=== PATIENT | male | born 1960 | race Two or more races ===

== ENCOUNTER 2020-01-11 16:52 | Inpatient (IN) | payer MEDICARE ==
[~2020-01-11] VITALS: Ht 167.6 cm; Wt 49.0 kg
[2020-01-11 16:00] VITALS: BP 127/84
[2020-01-11] MEDS ORDERED: OLAN2.5T3 PO (17:11)
[2020-01-11] MEDS ORDERED: DIVA125T2 PO (17:11)
--- NOTE | 2020-01-11 17:22 | NUR ---
PATIENT WAS SEEN BY MD. HE IS AWAKE AND ALERT. HAND OFF REPORT GIVEN TO ILAN IN MHU
[2020-01-11] MEDS ORDERED: MAGNESIUM HYDROXIDE 30 ML LIQUID UDC PO PRN (17:45)
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
[2020-01-11 20:00] VITALS: BP 112/61
[2020-01-11] MEDS: TEMAZEPAM 7.5 MG CAPSULE PO PRN (22:57)
[2020-01-12 07:30] VITALS: BP 126/67
[2020-01-12 07:38] LABS: BASOPHILS # (AUTO) 0.1 K/uL (0.0-8.0); BASOPHILS % (AUTO) 1.4 % (0.0-2.0); EOSINOPHILS # (AUTO) 0.7 K/uL (0.0-0.7); EOSINOPHILS % (AUTO) 10.1 % (0.0-7.0); HEMATOCRIT 27.4 % (36.7-47.1); HEMOGLOBIN 8.8 g/dL (12.5-16.3); LYMPHOCYTES # (AUTO) 1.4 K/uL (20.0-40.0); LYMPHOCYTES % (AUTO) 20.5 % (20.5-51.5); MEAN CORPUSCULAR HEMOGLOBIN 27.4 uug (23.8-33.4); MEAN CORPUSCULAR HGB CONC 32 g/dL (32.5-36.3); MEAN CORPUSCULAR VOLUME 84.9 fL (73.0-96.2); MONOCYTES # (AUTO) 0.6 K/uL (2.0-10.0); MONOCYTES % (AUTO) 8.2 % (0.0-11.0); NEUTROPHILS # (AUTO) 4.2 K/uL (1.8-8.9); NEUTROPHILS % (AUTO) 59.8 % (38.5-71.5); PLATELET COUNT (AUTO) 497 K/uL (152-348); RED BLOOD CELL COUNT(AUTO) 3.22 MIL/uL (4.06-5.63)
[2020-01-12 07:45] VITALS: BP 94/58
[2020-01-12 08:10] LABS: THYROID STIMULATING HORMONE 1.839 mIU/mL (0.358-3.740)
[2020-01-12 10:35] LABS: BILIRUBIN,TOTAL 0.2 mg/dL (0.2-1.0); CREATININE 0.7 mg/dL (0.6-1.3); PHOSPHOROUS 3.2 mg/dL (2.5-4.9); POTASSIUM 4.4 mmol/L (3.5-5.1); TOTAL PROTEIN, SERUM 6.9 g/dL (6.4-8.2)
--- NOTE | 2020-01-12 11:29 | NUR ---
Firearms Report DOJ: Brake Linings Coater completed and submitted a DOJ firearms report for 5150 danger to himself and danger to others certification. A copy of report has been placed in patient chart.
[2020-01-12] MEDS: DIVALPROEX SPRINKLE 125 MG CAP.SPRINK PO SCH ×3 (12:57→16:33)
[2020-01-12] MEDS: ENSURE ENLIVE (VAN) 240 ML LIQUID PO SCH ×2 (12:57→16:31)
[2020-01-12] MEDS ORDERED: cogentin (14:20)
[2020-01-12] MEDS ORDERED: depakote (14:20)
[2020-01-12 15:09] VITALS: BP 133/79
--- NOTE | 2020-01-12 15:49 | NUR ---
DPOA Contact: ANDREW called the pts DPOA, Madeleine ([phone]), who provided the SW with collateral information. SW inquired about the pts discharge plan and she stated that the pt can return to their home and that she will pick him up.
--- NOTE | 2020-01-12 16:06 | NUR ---
Initial Discharge Plan: Pt currently resides in a home with Madeleine ([phone]) located at [address] [place] [address], [place] [address]. Per pts DPOA, she would like him to return home and she will pick him up. ANDREW will work with the pt and the MD regarding appropriate discharge planning. SW will form a safe and proper discharge.
[2020-01-12 20:00] VITALS: BP 122/76
[2020-01-12] MEDS: OLANZAPINE 2.5 MG TABLET PO SCH (20:46)
--- NOTE | 2020-01-12 21:00 | NUR ---
RECEIVED PATIENT IN HIS ROOM IN BED. AWAKE AND ALERT X1. NOTED POOR INSIGHT AND JUDGMENT. PATIENT DENIED SI BUT STATED HE IS HEARING VOICES. HE IS ABLE TO VERBALLY CONTRACT FOR SAFETY. PT COMPLIANT WITH MEDICATIONS. FALL PRECAUTION IN PLACE. PT IS REASSURED FOR HIS SAFETY. Q15 MINUTE SAFETY CHECKS IN PLACE.
[2020-01-12] MEDS: LORAZEPAM 0.5 MG TABLET PO PRN (23:15)
[2020-01-13] MEDS: TEMAZEPAM 7.5 MG CAPSULE PO PRN (01:39)
--- NOTE | 2020-01-13 05:45 | NUR ---
Patient slept 6.00 hours Addendum: 01/13/20 at 0651 by CLIVE BANDA RN Patient yelling and cursing in room stating "They're going to take me to [facility]". OSCAR Benton given at 0610 will endorse to oncoming staff of behavior
[2020-01-13] MEDS: LORAZEPAM 0.5 MG TABLET PO PRN ×2 (06:10→20:08)
[2020-01-13 07:30] VITALS: BP 100/64
[2020-01-13] MEDS: ENSURE ENLIVE (VAN) 240 ML LIQUID PO SCH ×3 (09:47→17:17)
[2020-01-13] MEDS: DIVALPROEX SPRINKLE 125 MG CAP.SPRINK PO SCH ×3 (09:47→17:17)
[2020-01-13 15:03] VITALS: BP 126/65
--- NOTE | 2020-01-13 16:30 | NUR ---
Gps/Local City Driver- Noted patient tends to stay in his room in bed most of the afternoon. Encouraged going to the dinning room during his meals. Deneis any discomfort. Patient flat affect , but making his needs known to the staff, kept asking when is he leaving.
[2020-01-13 19:58] VITALS: BP 106/60
[2020-01-13] MEDS: OLANZAPINE 2.5 MG TABLET PO SCH (20:08)
--- NOTE | 2020-01-14 04:58 | NUR ---
Received patient in his room with all the lights blaring , reading his Bible. This patient was up to the nurses station every hour asking for food last night. Vice President For Instruction did provide snacks but set limits which the patient totally ignored. Vice President For Instruction was able to provide a shower to the patient but conversation was minimal. At one point, this patient went off on a tangent about the person he was living with " Is a fucking whore, I hate her." This was out of the blue. Also patient stated " The voice in my head keeps telling me that I am going to senior living when I leave here. " Patient has been verbally responding to his internal stimuli at times yelling loudly at it. Total sleep so far is 3.00 hours. Patient is at this time awake in the room talking to himself. Continuing to monitor for safety and behavior escalation. No acute distress so far and patient has been compliant with his medications.
[2020-01-14 07:30] VITALS: BP 136/77
[2020-01-14] MEDS: DIVALPROEX SPRINKLE 125 MG CAP.SPRINK PO SCH ×2 (08:05→16:11)
[2020-01-14] MEDS: ENSURE ENLIVE (VAN) 240 ML LIQUID PO SCH ×3 (08:05→17:45)
--- NOTE | 2020-01-14 15:57 | NUR ---
patient is guarded, withdrawn, anxious, and restless. he is seen frequently pacing in the hallway and in his assigned room. patient is heard screaming curse words in his room while he is alone. he is reporting AH of voices that are saying derogatory things to him. patient requires reality orientation during conversation, he asks the same question multiple times. patient denies SI/HI. patient is adherent with medication, no adverse reaction noted. patient is able to ambulate independently and perform self care and ADL's. he is encouraged to communicate needs to staff appropriately, provided with education on impulse control.
[2020-01-14 16:04] VITALS: BP 135/82
[2020-01-14] MEDS: LORAZEPAM 0.5 MG TABLET PO PRN (16:11)
[2020-01-14 20:09] VITALS: BP 142/84
[2020-01-14] MEDS: OLANZAPINE 5 MG TABLET PO SCH (20:22)
[2020-01-14] MEDS: MAG HYDROX/AL HYDROX/SIMETH 30 ML LIQUID UDC PO PRN (20:22)
[2020-01-14] MEDS: ACETAMINOPHEN 325 MG TABLET PO PRN (20:22)
[2020-01-15] MEDS: TEMAZEPAM 7.5 MG CAPSULE PO PRN (01:20)
--- NOTE | 2020-01-15 01:22 | NUR ---
Patient is noted in his room alone (no room-mate) he is reading his bible, talking to himself, yelling and cursing at time. He is also noted easily irritable when redirected. He continue asking for milk. Temazepam 7.5 mg PO PRN was given for insomnia. will continue to monitor.
[2020-01-15] MEDS: LORAZEPAM 0.5 MG TABLET PO PRN (03:15)
[2020-01-15 07:30] VITALS: BP 124/73
[2020-01-15] MEDS: ENSURE ENLIVE (VAN) 240 ML LIQUID PO SCH ×3 (08:49→17:04)
[2020-01-15] MEDS: DIVALPROEX SPRINKLE 125 MG CAP.SPRINK PO SCH ×3 (08:51→17:00)
[2020-01-15] MEDS: ACETAMINOPHEN 325 MG TABLET PO PRN (13:43)
[2020-01-15 15:13] VITALS: BP 125/73
--- NOTE | 2020-01-15 18:48 | NUR ---
patient is very intrusive ask same question again and again, compliant with all medication. stay in his room reading bible .
[2020-01-15] MEDS: OLANZAPINE 5 MG TABLET PO SCH (20:09)
[2020-01-15 20:25] VITALS: BP 115/53
--- NOTE | 2020-01-16 06:09 | NUR ---
nsg: slept 1.15 hrs only through the night.
--- NOTE | 2020-01-16 06:34 | NUR ---
Pt restless, anxious, and responding to internal stimuli. Pt is needy with snacks and gets easily irritated when limits are set. Pt is impulsive and unpredictable and threatened this board writer and made hand gestures as is to shoot a gun. Pt was successfully redirected and went to his room. (+)AH, responds to internal stimuli, yells randomly, and speaks incoherently to unseen others. Presented with poor sleep, but Pt declined prn sleeping pill. Compliant with scheduled medication. Denied pain, VS stable.
[2020-01-16 07:30] VITALS: BP 116/49
[2020-01-16] MEDS: DIVALPROEX SPRINKLE 125 MG CAP.SPRINK PO SCH ×3 (08:21→16:21)
[2020-01-16] MEDS: ENSURE ENLIVE (VAN) 240 ML LIQUID PO SCH ×3 (08:21→16:21)
[2020-01-16 16:20] VITALS: BP 129/63
[2020-01-16] MEDS: TEMAZEPAM 7.5 MG CAPSULE PO PRN (20:45)
[2020-01-16] MEDS ORDERED: OLANZAPINE 5 MG TABLET PO SCH (21:00)
[2020-01-16 22:00] VITALS: BP 106/65
[2020-01-16] MEDS: LORAZEPAM 0.5 MG TABLET PO PRN (22:51)
[2020-01-17] MEDS: LORAZEPAM 0.5 MG TABLET PO PRN ×2 (02:25→06:31)
--- NOTE | 2020-01-17 06:27 | NUR ---
Patient slept 2.30 hours throughout the night. Medicated 3x for anxiety as needed.
[2020-01-17 07:30] VITALS: BP 136/86
[2020-01-17] MEDS: DIVALPROEX SPRINKLE 125 MG CAP.SPRINK PO SCH ×3 (08:24→16:11)
[2020-01-17] MEDS: ENSURE ENLIVE (VAN) 240 ML LIQUID PO SCH ×3 (09:09→17:27)
--- NOTE | 2020-01-17 13:58 | NUR ---
ANDREW PC Hearing: Patient had probable cause hearing today and it was upheld for grave disability.
[2020-01-17 15:48] VITALS: BP 140/85
[2020-01-17 20:00] VITALS: BP 110/62
[2020-01-17] MEDS ORDERED: OLANZAPINE 5 MG TABLET PO SCH (21:00)
[2020-01-18] MEDS: TEMAZEPAM 7.5 MG CAPSULE PO PRN ×2 (00:24→21:29)
[2020-01-18 07:23] LABS: BASOPHILS # (AUTO) 0.1 K/uL (0.0-8.0); BASOPHILS % (AUTO) 1.1 % (0.0-2.0); EOSINOPHILS # (AUTO) 0.4 K/uL (0.0-0.7); EOSINOPHILS % (AUTO) 6.2 % (0.0-7.0); HEMATOCRIT 26.2 % (36.7-47.1); HEMOGLOBIN 8.5 g/dL (12.5-16.3); LYMPHOCYTES % (AUTO) 14.7 % (20.5-51.5); MEAN CORPUSCULAR HEMOGLOBIN 27.1 uug (23.8-33.4); MEAN CORPUSCULAR HGB CONC 33 g/dL (32.5-36.3); MEAN CORPUSCULAR VOLUME 83.4 fL (73.0-96.2); MONOCYTES # (AUTO) 0.8 K/uL (2.0-10.0); MONOCYTES % (AUTO) 11.4 % (0.0-11.0); NEUTROPHILS # (AUTO) 4.6 K/uL (1.8-8.9); NEUTROPHILS % (AUTO) 66.6 % (38.5-71.5); PLATELET COUNT (AUTO) 429 K/uL (152-348); RED BLOOD CELL COUNT(AUTO) 3.14 MIL/uL (4.06-5.63); WHITE BLOOD COUNT (AUTO) 6.9 K/uL (3.6-10.2)
[2020-01-18 07:30] VITALS: BP 142/90
[2020-01-18 07:33] LABS: BILIRUBIN,TOTAL 0.5 mg/dL (0.2-1.0); CREATININE 0.9 mg/dL (0.6-1.3); MAGNESIUM 2.5 mg/dL (1.8-2.4); PHOSPHOROUS 4.5 mg/dL (2.5-4.9); POTASSIUM 4.9 mmol/L (3.5-5.1); TOTAL PROTEIN, SERUM 7.2 g/dL (6.4-8.2)
[2020-01-18] MEDS: LORAZEPAM 0.5 MG TABLET PO PRN (09:20)
[2020-01-18] MEDS: DIVALPROEX SPRINKLE 125 MG CAP.SPRINK PO SCH ×3 (09:20→17:00)
[2020-01-18] MEDS: ENSURE ENLIVE (VAN) 240 ML LIQUID PO SCH ×3 (09:21→17:01)
[2020-01-18 16:00] VITALS: BP 143/79
[2020-01-18 20:00] VITALS: BP 137/82
[2020-01-18] MEDS: OLANZAPINE 5 MG TABLET PO SCH (21:28)
--- NOTE | 2020-01-19 06:01 | NUR ---
GPS: Remain cooperative most of the night. occ gets anxious, and responding to internal stimuli. Pt is needy with snacks and gets easily irritated. patient speaks incoherently to unseen others. Compliant with scheduled medication. Denied pain, VS stable.continue plan of care.
--- NOTE | 2020-01-19 06:49 | NUR ---
slept 6.45 hrs through the night.
[2020-01-19 07:30] VITALS: BP 112/69
[2020-01-19] MEDS: DIVALPROEX SPRINKLE 125 MG CAP.SPRINK PO SCH ×2 (08:40→12:18)
[2020-01-19] MEDS: ENSURE ENLIVE (VAN) 240 ML LIQUID PO SCH ×3 (08:41→16:52)
[2020-01-19 16:00] VITALS: BP 160/88
[2020-01-19] MEDS: DIVALPROEX 500 MG TABLET.DR PO SCH (16:52)
[2020-01-19] MEDS: OLANZAPINE 5 MG TABLET PO SCH (20:06)
[2020-01-19] MEDS: LORAZEPAM 0.5 MG TABLET PO PRN (20:06)
[2020-01-19 20:19] VITALS: BP 112/79
--- NOTE | 2020-01-20 06:08 | NUR ---
Patient was up most of the night , reading and talking to the voices in his head. Multiple times this patient came to the nurses station asking for food. Total of 2.00 sleep last night.
[2020-01-20 07:30] VITALS: BP 123/68
[2020-01-20] MEDS: ENSURE ENLIVE (VAN) 240 ML LIQUID PO SCH ×3 (08:01→17:36)
[2020-01-20] MEDS: DIVALPROEX SPRINKLE 125 MG CAP.SPRINK PO SCH ×2 (08:01→12:14)
[2020-01-20 16:04] VITALS: BP 156/96
[2020-01-20] MEDS: DIVALPROEX 500 MG TABLET.DR PO SCH (16:43)
[2020-01-20 20:00] VITALS: BP 118/70
[2020-01-20] MEDS: OLANZAPINE 5 MG TABLET PO SCH (20:53)
[2020-01-21] MEDS: TEMAZEPAM 7.5 MG CAPSULE PO PRN ×2 (00:51→21:42)
--- NOTE | 2020-01-21 00:55 | NUR ---
Patient noted yelling and cursing, "shut up voices, shut up!". continue hearing voices. He continue asking for cereal and milk. milk was given, patient was reassured and redirected. Restoril 7.5mg PO PRN was also given for Insomnia. will continue to monitor,
[2020-01-21 07:30] VITALS: BP 107/60
[2020-01-21] MEDS: DIVALPROEX SPRINKLE 125 MG CAP.SPRINK PO SCH ×2 (08:20→12:22)
[2020-01-21] MEDS: LORAZEPAM 0.5 MG TABLET PO PRN ×3 (08:20→20:37)
[2020-01-21] MEDS: ENSURE ENLIVE (VAN) 240 ML LIQUID PO SCH ×3 (08:22→16:43)
[2020-01-21] MEDS: ACETAMINOPHEN 325 MG TABLET PO PRN (12:22)
[2020-01-21] MEDS: OLANZAPINE 5 MG TABLET PO SCH ×2 (13:44→20:37)
[2020-01-21 16:00] VITALS: BP 143/82
[2020-01-21] MEDS: DIVALPROEX 500 MG TABLET.DR PO SCH (16:42)
[2020-01-21 19:59] VITALS: BP 150/83
[2020-01-22] MEDS: GUAIFENESIN/DEXTROMETHORPHAN 5 ML UDC PO PRN (02:25)
[2020-01-22] MEDS: LORAZEPAM 0.5 MG TABLET PO PRN ×4 (02:34→16:46)
[2020-01-22] MEDS: ACETAMINOPHEN 325 MG TABLET PO PRN ×2 (02:34→08:03)
--- NOTE | 2020-01-22 04:50 | NUR ---
Received patient in his room yelling at the " voices in my head", also yelling and threatening his roommate. Many attempts to redirect patient and distract , with little response. PRN medications given per order, non effective. Patient slept approximately 1 hour last night. He was either up at the nurses station asking for food or in the room yelling. Retinal Surgeon continues to monitor further escalation in behavior, and monitoring safety of patient , staff and peers. A shower provided this am, patient tolerated it well. A productive cough noted during the night, and marketing underwriter notified Doctor Tonia. A order received for chest x-ray this am, as well as cough syrup.
[2020-01-22 07:30] VITALS: BP 146/84
[2020-01-22] MEDS: DIVALPROEX SPRINKLE 125 MG CAP.SPRINK PO SCH ×2 (08:03→12:17)
[2020-01-22] MEDS: OLANZAPINE 5 MG TABLET PO SCH ×2 (08:03→20:07)
[2020-01-22] MEDS: ENSURE ENLIVE (VAN) 240 ML LIQUID PO SCH ×3 (08:04→16:47)
--- NOTE | 2020-01-22 10:34 | NUR ---
DPOA Contact: ANDREW called the pts DPOA, Madeleine ([phone]) and was unable to reach to discuss discharge plan. Left a message and waiting for a call back.
--- NOTE | 2020-01-22 11:05 | NUR ---
ANDREW SNF REFERRAL: ANDREW faxed patient's referral packet to [facility] attention to Felix for review (fax: [phone]).
[2020-01-22] MEDS: FERROUS SULFATE 325 MG TABEC PO SCH (11:29)
--- NOTE | 2020-01-22 14:02 | NUR ---
SNF Referral: This short story writer contacted Polly vazquez for [facility] ([phone]) and sent H & P notes, medication list, and laboratory for possible placement.
--- NOTE | 2020-01-22 14:19 | NUR ---
SW Family Contact: This va underwriter contacted patient's DPBILLY Salvador ([phone]) and discussed facility options. Madeleine was open for this va underwriter to find pt a nursing facility.
--- NOTE | 2020-01-22 15:53 | NUR ---
SNF Contact: This proposal writer contacted Polly vazquez for [facility] ([phone]) who stated patient is accepted.
--- NOTE | 2020-01-22 15:58 | NUR ---
SW Family Contact: This law writer spoke with patient's ZAIN Madeleine ([phone]) and stated pt is accepted at [facility].
[2020-01-22 16:00] VITALS: BP 125/84
[2020-01-22] MEDS: DIVALPROEX 500 MG TABLET.DR PO SCH (16:46)
[2020-01-22 20:07] VITALS: BP 136/72
[2020-01-23] MEDS: TEMAZEPAM 7.5 MG CAPSULE PO PRN (00:16)
[2020-01-23] MEDS: LORAZEPAM 0.5 MG TABLET PO PRN ×3 (01:43→12:22)
--- NOTE | 2020-01-23 01:44 | NUR ---
Pt noted reading at loud and talking to himself. Pt was redirected, he was asked to read quietly to himself. Ativan 0.5mg PO PRN was given. will continue to monitor.
--- NOTE | 2020-01-23 06:54 | NUR ---
Patient did not sleep last night. he was observed in his room talking to himself, reading out loud at time, seen people standing by the window. PRN Ativan AND Temazepam were given last night. pt required redirection. will continue to monitor.
[2020-01-23 07:11] LABS: BASOPHILS % (AUTO) 1.2 % (0.0-2.0); EOSINOPHILS % (AUTO) 8.9 % (0.0-7.0); HEMATOCRIT 25.4 % (36.7-47.1); HEMOGLOBIN 8.2 g/dL (12.5-16.3); MEAN CORPUSCULAR HEMOGLOBIN 27.1 uug (23.8-33.4); MEAN CORPUSCULAR HGB CONC 32 g/dL (32.5-36.3); MONOCYTES % (AUTO) 12.5 % (0.0-11.0); NEUTROPHILS # (AUTO) 3.6 K/uL (1.8-8.9); NEUTROPHILS % (AUTO) 59.4 % (38.5-71.5); PLATELET COUNT (AUTO) 421 K/uL (152-348); RED BLOOD CELL COUNT(AUTO) 3.02 MIL/uL (4.06-5.63)
[2020-01-23 07:12] LABS: BASOPHILS # (AUTO) 0.1 K/uL (0.0-8.0); EOSINOPHILS # (AUTO) 0.5 K/uL (0.0-0.7); LYMPHOCYTES # (AUTO) 1.1 K/uL (20.0-40.0); MONOCYTES # (AUTO) 0.7 K/uL (2.0-10.0)
[2020-01-23 07:24] LABS: BILIRUBIN,TOTAL 0.2 mg/dL (0.2-1.0); CREATININE 0.8 mg/dL (0.6-1.3); POTASSIUM 4.3 mmol/L (3.5-5.1)
[2020-01-23 07:33] VITALS: BP 137/76
[2020-01-23] MEDS: DIVALPROEX SPRINKLE 125 MG CAP.SPRINK PO SCH ×2 (08:09→12:22)
[2020-01-23] MEDS: ACETAMINOPHEN 325 MG TABLET PO PRN (08:10)
[2020-01-23] MEDS: OLANZAPINE 5 MG TABLET PO SCH (08:10)
[2020-01-23] MEDS: FERROUS SULFATE 325 MG TABEC PO SCH (08:10)
[2020-01-23] MEDS: ENSURE ENLIVE (VAN) 240 ML LIQUID PO SCH ×3 (08:11→16:58)
--- NOTE | 2020-01-23 10:17 | NUR ---
Individual Counseling: production utility worker met with patient for brief counseling to address patient's disorganized thought content. Patient appeared to be responding internal stimuli and was talking to himself. Patient was unable to have a proper conversation at the moment due to delusions. This senior medical writer assessed to see if patient is experiencing auditory/visual hallucinations. He stated "Lv is dangerous, I want to go back home. This senior medical writer assessed for patients safety and reassured that he is safe at the hospital. This senior medical writer encouraged if she feels in danger to contact either this senior medical writer or the nursing staff. This senior medical writer comforted patient and actively listened.
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
[2020-01-23] MEDS ORDERED: HALOPERIDOL 5 MG TABLET PO SCH (12:00)
[2020-01-23] MEDS: HALOPERIDOL 5 MG TABLET PO SCH ×2 (15:10→18:04)
[2020-01-23] MEDS: DIVALPROEX 500 MG TABLET.DR PO SCH (16:57)
[2020-01-23 17:04] VITALS: BP 145/82
--- NOTE | 2020-01-23 18:46 | NUR ---
received patient is needy and demanding,patient is very intrusive continue asking for milk and medication.ambulating and self care. Compliant with medications
[2020-01-23 20:00] VITALS: BP 148/88
[2020-01-23] MEDS ORDERED: OLANZAPINE 5 MG TABLET PO SCH (21:00)
[2020-01-24] MEDS: TEMAZEPAM 7.5 MG CAPSULE PO PRN (00:17)
[2020-01-24] MEDS: LORAZEPAM 0.5 MG TABLET PO PRN (06:30)
[2020-01-24 07:30] VITALS: BP 133/89
[2020-01-24] MEDS: FERROUS SULFATE 325 MG TABEC PO SCH (08:08)
[2020-01-24] MEDS: DIVALPROEX SPRINKLE 125 MG CAP.SPRINK PO SCH ×2 (08:09→12:13)
[2020-01-24] MEDS: ENSURE ENLIVE (VAN) 240 ML LIQUID PO SCH ×3 (08:13→17:29)
[2020-01-24] MEDS: HALOPERIDOL 5 MG TABLET PO SCH ×3 (10:09→16:27)
[2020-01-24 16:06] VITALS: BP 120/73
[2020-01-24] MEDS: DIVALPROEX 500 MG TABLET.DR PO SCH (16:27)
[2020-01-24 20:07] VITALS: BP 132/76
[2020-01-25 07:44] VITALS: BP 113/58
[2020-01-25] MEDS: DIVALPROEX SPRINKLE 125 MG CAP.SPRINK PO SCH ×2 (08:28→13:23)
[2020-01-25] MEDS: HALOPERIDOL 5 MG TABLET PO SCH ×4 (08:29→21:13)
[2020-01-25] MEDS: FERROUS SULFATE 325 MG TABEC PO SCH (08:29)
[2020-01-25] MEDS: ENSURE ENLIVE (VAN) 240 ML LIQUID PO SCH ×3 (08:31→17:44)
[2020-01-25] MEDS: GUAIFENESIN/DEXTROMETHORPHAN 5 ML UDC PO PRN (10:00)
--- NOTE | 2020-01-25 12:34 | NUR ---
Gps/Body Care Manager- Episode of paroxysmal coughing noted, dry rraspy coughs instructed not to lay down after eating, covering his head and his blanket..Isolative this am. encouraged to atttend his group thetapy/
[2020-01-25] MEDS: BENZTROPINE MESYLATE 0.5 MG TABLET PO SCH ×2 (13:23→17:43)
[2020-01-25] MEDS ORDERED: ALBUTEROL SULFATE 2.5 MG/3 ML NEBU NEB PRN (15:00)
--- NOTE | 2020-01-25 15:00 | NUR ---
Gps/Body Builder Apprentice- Informed Monisha Linton BUSINESS SERVICES SALES REPRESENTATIVE about > coughing this am. , in to see patient, orders received. for CXR.
[2020-01-25 16:28] VITALS: BP 146/86
[2020-01-25] MEDS: DIVALPROEX 500 MG TABLET.DR PO SCH (17:43)
[2020-01-25 20:00] VITALS: BP 107/68
[2020-01-25 21:09] VITALS: BP 129/76
[2020-01-26] MEDS: GUAIFENESIN/DEXTROMETHORPHAN 5 ML UDC PO PRN (00:55)
[2020-01-26] MEDS: TEMAZEPAM 7.5 MG CAPSULE PO PRN (00:55)
[2020-01-26 07:30] VITALS: BP 120/67
[2020-01-26] MEDS: FERROUS SULFATE 325 MG TABEC PO SCH (08:23)
[2020-01-26] MEDS: BENZTROPINE MESYLATE 0.5 MG TABLET PO SCH ×3 (08:23→17:31)
[2020-01-26] MEDS: HALOPERIDOL 5 MG TABLET PO SCH ×4 (08:23→20:51)
[2020-01-26] MEDS: ENSURE ENLIVE (VAN) 240 ML LIQUID PO SCH ×3 (08:23→17:31)
[2020-01-26] MEDS: DIVALPROEX SPRINKLE 125 MG CAP.SPRINK PO SCH ×2 (08:23→13:49)
--- NOTE | 2020-01-26 11:00 | NUR ---
SW Family Contact: This handbook writer contacted patients ZAIN Salvador ([phone]) and left a detailed voicemail that pt will be discharged Sunday 01/28.
--- NOTE | 2020-01-26 13:17 | NUR ---
SW Family Contact: This typewriter assembler contacted patients ZAIN Salvador ([phone]) and left a detailed voicemail that pt will be discharged Sunday 01/28 twice. This typewriter assembler stated to call this typewriter assembler back to confirm.
[2020-01-26 16:00] VITALS: BP 124/79
[2020-01-26] MEDS: DIVALPROEX 500 MG TABLET.DR PO SCH (17:31)
[2020-01-26 20:00] VITALS: BP 96/60
[2020-01-26] MEDS: LORAZEPAM 0.5 MG TABLET PO PRN (22:34)
--- NOTE | 2020-01-26 22:53 | NUR ---
GPS/Rn - Received Pt in bed laying and talking. Responded to his name and when back talking. Cooperative with his due medications and repeatedly asking for food or snacks. Patient has been responding strongly and vigorously to internal stimuli, fighting, arguing with a certain name he keeps calling out (Thomas)! Patient unable to sleep because of the constant talking, yelling and screaming out loud. PRN given and will monitor for effect. Safety precaution in place and will continue monitor.
[2020-01-27] MEDS: TEMAZEPAM 7.5 MG CAPSULE PO PRN (00:07)
--- NOTE | 2020-01-27 06:09 | NUR ---
Pt was very hallucinating during the night, keep yelling. Asked for something to help him relaxed and this poem writer offered him Ativan but he refused and if nothing to eat now I am not taking it. Patient slept about two hours after Restoril and Ativan 0.5mg during shift.
[2020-01-27 07:30] VITALS: BP 125/71
[2020-01-27] MEDS: HALOPERIDOL 5 MG TABLET PO SCH ×4 (08:40→20:27)
[2020-01-27] MEDS: DIVALPROEX SPRINKLE 125 MG CAP.SPRINK PO SCH (08:40)
[2020-01-27] MEDS: BENZTROPINE MESYLATE 0.5 MG TABLET PO SCH ×3 (08:40→17:31)
[2020-01-27] MEDS: FERROUS SULFATE 325 MG TABEC PO SCH (08:40)
[2020-01-27] MEDS: ENSURE ENLIVE (VAN) 240 ML LIQUID PO SCH ×3 (08:41→17:11)
[2020-01-27 09:17] LABS: BASOPHILS # (AUTO) 0.1 K/uL (0.0-8.0); EOSINOPHILS # (AUTO) 0.3 K/uL (0.0-0.7); EOSINOPHILS % (AUTO) 5.2 % (0.0-7.0); HEMATOCRIT 29.4 % (36.7-47.1); HEMOGLOBIN 9.3 g/dL (12.5-16.3); LYMPHOCYTES # (AUTO) 0.7 K/uL (20.0-40.0); LYMPHOCYTES % (AUTO) 12.9 % (20.5-51.5); MEAN CORPUSCULAR HEMOGLOBIN 26.9 uug (23.8-33.4); MEAN CORPUSCULAR HGB CONC 32 g/dL (32.5-36.3); MEAN CORPUSCULAR VOLUME 84.9 fL (73.0-96.2); MONOCYTES % (AUTO) 18.7 % (0.0-11.0); NEUTROPHILS # (AUTO) 3.4 K/uL (1.8-8.9); NEUTROPHILS % (AUTO) 62.2 % (38.5-71.5); PLATELET COUNT (AUTO) 407 K/uL (152-348); RED BLOOD CELL COUNT(AUTO) 3.46 MIL/uL (4.06-5.63); WHITE BLOOD COUNT (AUTO) 5.5 K/uL (3.6-10.2)
[2020-01-27 09:44] LABS: BILIRUBIN,TOTAL 0.2 mg/dL (0.2-1.0); CREATININE 1.1 mg/dL (0.6-1.3); POTASSIUM 4.3 mmol/L (3.5-5.1); TOTAL PROTEIN, SERUM 7.1 g/dL (6.4-8.2)
--- NOTE | 2020-01-27 11:00 | NUR ---
Gps/Teletypist- Patient pacing back and forth, demanding behavior, loud, prn ativan o.5 mg was given , encouraged staying in his group tx.
[2020-01-27] MEDS: LORAZEPAM 0.5 MG TABLET PO PRN ×2 (11:17→21:20)
--- NOTE | 2020-01-27 11:30 | NUR ---
Gps/Pharmaceutical Operator- Dt Maritza was called , informed patient increased agitation, loud, yelling, banging and closing doors , difficulty redirecting patient, threatening behavior , orders received( Haldol 2 mg IM & Ativan 1 mg IM)
[2020-01-27] MEDS ORDERED: HALOPERIDOL LACTATE 5 MG/1 ML VIAL IM ONE (11:45)
[2020-01-27] MEDS ORDERED: LORAZEPAM 2 MG/1 ML VIAL IM ONE (11:45)
[2020-01-27] MEDS: GUAIFENESIN/DEXTROMETHORPHAN 5 ML UDC PO PRN (12:37)
[2020-01-27] MEDS ORDERED: LORAZEPAM 0.5 MG TABLET PO SCH (13:00)
[2020-01-27] MEDS: LORAZEPAM 0.5 MG TABLET PO SCH (14:27)
[2020-01-27 15:19] VITALS: BP 121/81
--- NOTE | 2020-01-27 16:30 | NUR ---
Gps/Utilization Review Coordinator- Had been in and out of the dinning room, , gets needy, forgetful, kept asking the same thing, , reads book, responding to internal stimuli, curing , using foul language.
[2020-01-27] MEDS: DIVALPROEX 250 MG TABLET.DR PO SCH (17:31)
[2020-01-27 17:54] LABS: BAND % (MANUAL) 1 % (0-10); EOSINOPHILS % (MANUAL) 6 % (0-8); LYMPHOCYTES % (MANUAL) 15 % (20-40); MONOCYTES % (MANUAL) 21 % (2-10); NEUTROPHILS % (MANUAL) 57 % (42-75)
[2020-01-27 20:00] VITALS: BP 100/65
[2020-01-28] MEDS: TEMAZEPAM 7.5 MG CAPSULE PO PRN (01:05)
[2020-01-28] MEDS: GUAIFENESIN/DEXTROMETHORPHAN 5 ML UDC PO PRN (01:05)
[2020-01-28] MEDS: LORAZEPAM 0.5 MG TABLET PO PRN ×2 (05:21→21:59)
--- NOTE | 2020-01-28 06:46 | NUR ---
PATIENT SLEPT FOR APPROX. 2.30 HRS THROUGH THE NIGHT. HE CONTINUE COMING TO THE NURSING STATION THROUGHOUT THE NIGHT ASKING FOR MILK, FOOD, AND OTHER MULTIPLE REQUESTS. PATIENT GETS IRRITABLE WHEN REDIRECTED, REQUIRES CONSTANT REDIRECTION. HE IS DELUSIONAL. HE WAS OBSERVED YELLING AT TIME IN HIS ROOM, HE STATED TO NURSING STAFF, "DON'T YOU KNOW THAT THE WORLD ENDED YESTERDAY". PATIENT REQUIRES TO SET LIMITATION AND REALITY CHECK. ATIVAN 0.5 MG WAS GIVEN. WILL CONTINUE TO MONITOR BEHAVIOR.
[2020-01-28 07:30] VITALS: BP 110/80
[2020-01-28] MEDS: DIVALPROEX 250 MG TABLET.DR PO SCH ×2 (08:21→16:36)
[2020-01-28] MEDS: FERROUS SULFATE 325 MG TABEC PO SCH (08:21)
[2020-01-28] MEDS: HALOPERIDOL 5 MG TABLET PO SCH ×4 (08:21→20:01)
[2020-01-28] MEDS: ENSURE ENLIVE (VAN) 240 ML LIQUID PO SCH ×3 (08:21→16:38)
[2020-01-28] MEDS: BENZTROPINE MESYLATE 0.5 MG TABLET PO SCH ×3 (08:21→16:37)
[2020-01-28] MEDS: LORAZEPAM 0.5 MG TABLET PO SCH ×3 (08:21→16:37)
--- NOTE | 2020-01-28 10:57 | NUR ---
Gps/diesel powerplant mechanic helper- Specimen for covid 19 nares swab sent to lab, possible dc plan for tomorrow.
--- NOTE | 2020-01-28 15:11 | NUR ---
Gps/Sugarcane Planter- Remains needy, constantly coming to Nurses station asking for milk, juice, water something to eat, setting limits provided. forgetful , gets anxious, demanding behavior, speech gets garbled, encouraged to talk slowly .
[2020-01-28 16:00] VITALS: BP 113/82
[2020-01-28 19:58] VITALS: BP 112/78
[2020-01-28] MEDS: MAG HYDROX/AL HYDROX/SIMETH 30 ML LIQUID UDC PO PRN (21:59)
[2020-01-29] MEDS: LORAZEPAM 0.5 MG TABLET PO PRN (03:06)
[2020-01-29] MEDS: GUAIFENESIN/DEXTROMETHORPHAN 5 ML UDC PO PRN (05:39)
[2020-01-29 07:30] VITALS: BP 129/63
[2020-01-29] MEDS: DIVALPROEX 250 MG TABLET.DR PO SCH (08:47)
[2020-01-29] MEDS: HALOPERIDOL 5 MG TABLET PO SCH ×2 (08:48→14:25)
[2020-01-29] MEDS: ACETAMINOPHEN 325 MG TABLET PO PRN (08:48)
[2020-01-29] MEDS: FERROUS SULFATE 325 MG TABEC PO SCH (08:48)
[2020-01-29] MEDS: LORAZEPAM 0.5 MG TABLET PO SCH ×2 (08:48→14:25)
[2020-01-29] MEDS: BENZTROPINE MESYLATE 0.5 MG TABLET PO SCH ×2 (08:48→14:25)
[2020-01-29] MEDS: ENSURE ENLIVE (VAN) 240 ML LIQUID PO SCH ×2 (08:48→13:00)
--- NOTE | 2020-01-29 10:01 | NUR ---
DPOA Contact: ANDREW contacted patients OSWALDBILLY Salvador ([phone]) and informed her that the pt is being discharged to [facility] today around 1PM. Pts DPOA stated that she is aware and that she has accepted the placement.
--- NOTE | 2020-01-29 11:44 | NUR ---
Discharge Note: Patient will be discharged to [facility] located at [address] [place] [id number]; ([phone]) via ambulance at 1PM. SW spoke with Polly ([phone]), recruiting coordinator at the facility, who confirmed patient is welcome today. Patients ZAIN Salvador ([phone]) is aware and agreeable with discharge. Patient is unable to provide care for herself at this time but is willing to accept care provided for him at the facility. Upon discharge, pt appears to be in a dysphoric mood with a congruent affect. Pt denies both suicidal and homicidal ideation as well as auditory and visual hallucinations. Pt appears to be well groomed and appropriately dressed. Pt appears to be ambulatory with a steady gait. Patient will follow up with (psychiatrist) Dr. Juarez located at [address] [facility] [address], [place] [address]; and (automatic fabric cutter) Dr. Samano located at [address], [place] [address]; . Pt signed the Choice of Vendor form and the multidisciplinary exit care form was done, printed, signed, and given to the patient.
[2020-01-29 13:35] LABS: BASOPHILS # (AUTO) 0.1 K/uL (0.0-8.0); BASOPHILS % (AUTO) 0.8 % (0.0-2.0); EOSINOPHILS # (AUTO) 0.3 K/uL (0.0-0.7); HEMATOCRIT 28.4 % (36.7-47.1); LYMPHOCYTES # (AUTO) 0.9 K/uL (20.0-40.0); LYMPHOCYTES % (AUTO) 14.4 % (20.5-51.5); MEAN CORPUSCULAR HEMOGLOBIN 27.4 uug (23.8-33.4); MEAN CORPUSCULAR HGB CONC 32 g/dL (32.5-36.3); MEAN CORPUSCULAR VOLUME 86.6 fL (73.0-96.2); MONOCYTES # (AUTO) 1.2 K/uL (2.0-10.0); MONOCYTES % (AUTO) 18.7 % (0.0-11.0); NEUTROPHILS % (AUTO) 62.1 % (38.5-71.5); PLATELET COUNT (AUTO) 347 K/uL (152-348); RED BLOOD CELL COUNT(AUTO) 3.28 MIL/uL (4.06-5.63); WHITE BLOOD COUNT (AUTO) 6.5 K/uL (3.6-10.2)
[2020-01-29 13:48] LABS: BILIRUBIN,TOTAL 0.2 mg/dL (0.2-1.0); CREATININE 0.8 mg/dL (0.6-1.3); POTASSIUM 4.6 mmol/L (3.5-5.1)
[2020-01-29 15:24] VITALS: BP 116/73
--- NOTE | 2020-01-29 15:30 | NUR ---
GPS: Nursing Notes: Discharge Notes: Patient is awake and responding to his name, compliant with his medications, argumentative at times, following staff directions, setting limits during shift, denies SI/HI, denies AH/VH, denies, denies pain or discomfort, denies SOB, discharge to [facility] at [address] [place] [address] . Patient's Madeleine PITTMAN was notify of discharge by licensed clinical social worker, report given to nurse animal humane agent supervisor - Carol Ann. Patient will follow up with (psychiatrist) Dr. Juarez located at [address] [facility] [address], [place] [address]; and (vacuum drum drier operator) Dr. Samano located at [address] [facility] [address], [place] [address]; .
[2020-01-29] MEDS ORDERED: DIVALPROEX 500 MG TABLET.DR PO SCH (21:00)
[2020-01-30 03:24] LABS: BAND % (MANUAL) 4 % (0-10); LYMPHOCYTES % (MANUAL) 11 % (20-40); MONOCYTES % (MANUAL) 15 % (2-10); NEUTROPHILS % (MANUAL) 70 % (42-75)
[2020-01-30] MEDS ORDERED: DIVALPROEX 250 MG TABLET.DR PO SCH (09:00)
== END 2020-01-29 15:30 | DRG 885 ==
LOC: ER 16:56 → GPS 17:24
PROVIDERS: ADMIT Psychiatry & Neurology Psychosomatic Medicine; ATTEND Internal Medicine
DX: F25.9 Schizoaffective disorder, unspecified (principal); E43 Unspecified severe protein-calorie malnutrition; Z68.1 Body mass index [BMI] 19.9 or less, adult; R62.7 Adult failure to thrive; F09 Unspecified mental disorder due to known physiological condition; D50.9 Iron deficiency anemia, unspecified; Z87.891 Personal history of nicotine dependence; Z95.0 Presence of cardiac pacemaker; G31.84 Mild cognitive impairment of uncertain or unknown etiology; E88.09 Other disorders of plasma-protein metabolism, not elsewhere classified; F60.9 Personality disorder, unspecified
CPT/HCPCS: 36415; 70030-TC; 71045; 80164; 82378; 83550; 83735; 84100; 84443; 85025; 93005; 94664; A4663; J1630; J2060; J3490

== ENCOUNTER 2020-02-07 15:05 | Inpatient (IN) | payer MEDICARE ==
[~2020-02-07] VITALS: Ht 167.6 cm; Wt 49.0 kg
[~2020-02-07 15:05] MED LIST: cogentin; depakote
--- NOTE | 2020-02-07 15:30 | NUR ---
1:1 SECURITY AT BEDSIDE. PATIENT IN BED.
[2020-02-07] MEDS ORDERED: NA P133E RC (15:34)
[2020-02-07] MEDS ORDERED: ACET-73 PO (15:34)
[2020-02-07] MEDS ORDERED: DIVA250T4 PO (15:34)
[2020-02-07] MEDS ORDERED: FERR325T30 PO (15:34)
[2020-02-07] MEDS ORDERED: HALO5TAB PO (15:34)
[2020-02-07] MEDS ORDERED: TEMA7.5C PO (15:34)
[2020-02-07] MEDS ORDERED: ACET-2154 PO (15:34)
[2020-02-07] MEDS ORDERED: BISA10SU61 RC (15:34)
[2020-02-07] MEDS ORDERED: benzatropine PO (15:34)
[2020-02-07] MEDS ORDERED: LORA-258 PO (15:34)
[2020-02-07] MEDS ORDERED: MAGN400O6 PO (15:34)
--- NOTE | 2020-02-07 16:30 | NUR ---
1:1 SECURITY AT BEDSIDE. PATIENT IN BED. NO C/O ANY PAIN
--- NOTE | 2020-02-07 16:43 | NUR ---
ANA FROM CRISIS TEAM WAS CALLED WE COME EVALUATE PATIENT.
--- NOTE | 2020-02-07 17:30 | NUR ---
1:1 SECURITY AT BEDSIDE. PATIENT IN BED EATING DINNER.
--- NOTE | 2020-02-07 18:30 | NUR ---
1:1 SECURITY AT BEDSIDE. PATIENT IN BED.
--- NOTE | 2020-02-07 19:15 | NUR ---
ANA FROM CRISIS AT BEDSIDE FOR EVALUATION.
[2020-02-07] MEDS ORDERED: MAGNESIUM HYDROXIDE 30 ML LIQUID UDC PO PRN (22:45)
[2020-02-07] MEDS ORDERED: MAG HYDROX/AL HYDROX/SIMETH 30 ML LIQUID UDC PO PRN (22:45)
[2020-02-07 22:49] VITALS: BP 142/90
--- NOTE | 2020-02-08 00:05 | NUR ---
GPS: Admitted to unit earlier a 59 yr.old male under the care and supervision of . Pt.is on a 72 hour hold for DTO/GD. Pt. was making verbal threats to harm staff and became aggressive when they attempted to re-direct him at the facility where he came from. Pt.was just discharged from this unit/hosp.last week. Pt.was confused,disoriented,uncooperative,anxious and needy during admission process. Pt.has poor insight into his illness. Refused interview and to sign admission papers. Pt.s advisement and pt.'s rights handbook given. Unit rules explained. Pt. needs frequent re-direction and limit setting from staff. Safe environment provided.
[2020-02-08] MEDS: TEMAZEPAM 7.5 MG CAPSULE PO PRN ×2 (01:41→22:26)
[2020-02-08] MEDS: LORAZEPAM 0.5 MG TABLET PO PRN ×3 (02:26→14:43)
--- NOTE | 2020-02-08 06:51 | NUR ---
GPS: Pt.c/o feeling anxious and states that he's hearing voices. Refused to elaborate. Pt.is confused and disorganized. Needy and frequently approaches nursing station to ask for things. Re-directed prn. Will continue to monitor.
[2020-02-08 07:30] VITALS: BP 105/56
[2020-02-08 08:11] LABS: BILIRUBIN,TOTAL 0.4 mg/dL (0.2-1.0); CREATININE 0.8 mg/dL (0.6-1.3); POTASSIUM 4.1 mmol/L (3.5-5.1); TOTAL PROTEIN, SERUM 7.3 g/dL (6.4-8.2)
--- NOTE | 2020-02-08 08:54 | NUR ---
Firearms Report: Bowling Pin Refinisher completed and submitted a DPJ firearms report for 5150 grave disability certification. A copy of report has been placed in patient chart.
--- NOTE | 2020-02-08 09:53 | NUR ---
Initial Discharge Plan: Patient currently resides at [facility] [address] [place] [address] . This health technical writer contacted patient's DPOA sister Madeleine ([phone]) does not want pt back to a SNF and wants pt back home. This health technical writer will work with the MD and treatment team to coordinate proper discharge.
--- NOTE | 2020-02-08 09:54 | NUR ---
SW Family Contact: This health underwriter contacted patient's DPOA sister Madeleine ([phone]) does not want pt back to a SNF and wants pt back home.
--- NOTE | 2020-02-08 10:02 | NUR ---
SNF Contact: This editorial writer contacted Polly vazquez ([phone]) and she stated when pt is ready for dc is accepted back to [facility]
--- NOTE | 2020-02-08 13:39 | NUR ---
ANDREW Family Contact: This adjusto writer operator contacted patient's DPOA sister Madeleine ([phone]) unable to leave a voicemail, mailbox full. Addendum: 02/08/20 at 1348 by GOPAL PERALTA ANDREW spoke with Madeleine regarding the patient's concerns about returning home and his request of not returning home upon discharge. Madeleine stated she understands and id okay with what the patient decides.
[2020-02-08] MEDS: DIVALPROEX 250 MG TABLET.DR PO SCH ×2 (14:58→17:39)
[2020-02-08 16:45] VITALS: BP 149/86
[2020-02-08] MEDS: HALOPERIDOL 5 MG TABLET PO SCH ×2 (17:39→20:13)
[2020-02-08 19:45] VITALS: BP 149/89
[2020-02-09] MEDS: LORAZEPAM 0.5 MG TABLET PO PRN ×3 (06:20→23:29)
[2020-02-09 07:30] VITALS: BP 92/61
[2020-02-09] MEDS: HALOPERIDOL 5 MG TABLET PO SCH ×3 (08:32→20:49)
[2020-02-09] MEDS: DIVALPROEX 250 MG TABLET.DR PO SCH ×3 (08:32→16:01)
[2020-02-09] MEDS ORDERED: FLEET ENEMA 133 ML BOTTLE RC PRN (10:00)
--- NOTE | 2020-02-09 13:03 | NUR ---
patient noted responding to internal stimuli. He is yelling and cursing to unseen people, talking to himself, easily irritable but redirectable. Ativan 0.5 mg PO PRN was given for agitation. will continue to monitor.
[2020-02-09 16:00] VITALS: BP 93/60
--- NOTE | 2020-02-09 18:26 | NUR ---
Received patient appears disorganized, refusing to take shower, patient responding to internal stimuli, assisted with ADL, patient ambulates in hallway with FWW, patient having Auditory hallucination, patient is no distress at this time
[2020-02-09 20:00] VITALS: BP 118/74
[2020-02-09] MEDS ORDERED: MAGNESIUM HYDROXIDE 30 ML LIQUID UDC PO SCH (21:00)
[2020-02-09] MEDS: TEMAZEPAM 7.5 MG CAPSULE PO PRN (23:58)
[2020-02-10] MEDS: LORAZEPAM 0.5 MG TABLET PO PRN ×2 (05:55→16:53)
--- NOTE | 2020-02-10 05:58 | NUR ---
GPS: Pt.is awake,yelling/screaming and responding to internal stimuli. Easily irritable when being re-directed. Ativan 0.5mg given PO for anxiety. Quiet environment provided. Safety emphasized. Will continue to monitor for further escalation of behavior.
[2020-02-10 07:30] VITALS: BP 112/86
[2020-02-10] MEDS: HALOPERIDOL 5 MG TABLET PO SCH ×3 (08:05→20:35)
[2020-02-10] MEDS: DIVALPROEX 250 MG TABLET.DR PO SCH ×3 (08:05→16:53)
[2020-02-10] MEDS: FERROUS SULFATE 325 MG TABEC PO SCH (08:05)
[2020-02-10 15:49] VITALS: BP 118/75
--- NOTE | 2020-02-10 17:01 | NUR ---
patient is angry, agitated, and isolative to his room. he is actively RTIS. he is screaming and cursing at unknown others, stating that others are cursing at him so he has to curse back to protect himself. when asked about the quality, quantity, and content of hallucinations, patient denies having AH. patient is labile, and becomes increasingly angry when staff attempts to de-escalate and redirect patient. he is unable to participate in education because he is refusing and angry. patient provided with PO PRN ativan. he yelled at this commercial underwriter for giving him "poisonous water". patient instructed on how to communicate needs to staff appropriately.
[2020-02-10 20:00] VITALS: BP 122/66
[2020-02-11] MEDS: TEMAZEPAM 7.5 MG CAPSULE PO PRN ×2 (00:45→23:58)
[2020-02-11] MEDS: LORAZEPAM 0.5 MG TABLET PO PRN ×2 (04:35→19:44)
[2020-02-11] MEDS: ACETAMINOPHEN 325 MG TABLET PO PRN (04:36)
--- NOTE | 2020-02-11 05:59 | NUR ---
Patient up most of the night yelling at the "voice in his head". Despite multiple attempts to redirect or distract patient, patient continued to disturb the unit with his yelling. PRN medications given with little to no effect. Patient took a shower and sat in a chair at the nurses station in order for the roommate to get some sleep. Total sleep was 1.45. At one point patient became belligerent with staff and peers. Continuing to monitor closely for safety of patient, staff and peers. Also monitoring behavior escalation.
[2020-02-11 07:30] VITALS: BP 119/84
[2020-02-11] MEDS: DIVALPROEX 250 MG TABLET.DR PO SCH ×3 (08:59→17:22)
[2020-02-11] MEDS: HALOPERIDOL 5 MG TABLET PO SCH ×3 (09:00→21:14)
[2020-02-11] MEDS: FERROUS SULFATE 325 MG TABEC PO SCH (09:00)
--- NOTE | 2020-02-11 12:33 | NUR ---
Gps/Wax Blender- Found lying on the floor infront of the Nurses station, with his both arms spread l sideways. Eyes open looking around instructed, to get up, lying on the floor is not allowed. Informed his DPOA on the phone wants to talk to him, patient got up from the floor by himself and walked to his room while talking to his DPOA
[2020-02-11 16:00] VITALS: BP 138/67
--- NOTE | 2020-02-11 17:00 | NUR ---
Gps/Criminal Justice Social Worker- Patient again found on the floor exact the place infront of the Nurses station, claimed he tripped coming from the TV room. Instructed patient to stand up and go back to his room or stay up in the activity room, " i will go to my room ,in bed"
[2020-02-11 20:00] VITALS: BP 156/50
--- NOTE | 2020-02-11 20:00 | NUR ---
Received patient in his room in bed, he is noted A/O x 2. Noted easily irritable, speech is garble. he is noted yelling at time and talking to unseen people. When asked about it, he stated that he hears voices but unable to elaborate on that. He is noted with disorganized speech, blunted affect, irritable mood. Ativan 1mg PO PRN was given for agitation. Patient is reassured for his safety. safety and fall precaution in place. V/S stable. will continue to monitor.
--- NOTE | 2020-02-12 06:34 | NUR ---
PATIENT SLEPT FOR APPROX. 2.00 HRS THROUGH THE NIGHT. HE IS NOTED LESS IRRITABLE. CONTINUE RESPONDING TO INTERNAL STIMULI. PT IS REDIRECTABLE. WILL CONTINUE TO MONITOR.
[2020-02-12] MEDS: LORAZEPAM 0.5 MG TABLET PO PRN (06:58)
[2020-02-12 07:30] VITALS: BP 90/53
[2020-02-12] MEDS: DIVALPROEX 250 MG TABLET.DR PO SCH ×3 (08:33→16:41)
[2020-02-12] MEDS: ACETAMINOPHEN 325 MG TABLET PO PRN (08:33)
[2020-02-12] MEDS: FERROUS SULFATE 325 MG TABEC PO SCH (08:33)
[2020-02-12] MEDS: HALOPERIDOL 5 MG TABLET PO SCH ×3 (08:33→20:21)
[2020-02-12 15:10] VITALS: BP 94/56
[2020-02-12 20:00] VITALS: BP 96/56
[2020-02-12] MEDS: DIVALPROEX 500 MG TABLET.DR PO SCH (20:21)
[2020-02-13] MEDS: TEMAZEPAM 7.5 MG CAPSULE PO PRN (01:57)
[2020-02-13 07:30] VITALS: BP 90/54
[2020-02-13] MEDS: LORAZEPAM 0.5 MG TABLET PO PRN (07:54)
[2020-02-13] MEDS: ACETAMINOPHEN 325 MG TABLET PO PRN (07:55)
[2020-02-13] MEDS: DIVALPROEX 250 MG TABLET.DR PO SCH ×2 (08:10→12:52)
[2020-02-13] MEDS: HALOPERIDOL 5 MG TABLET PO SCH ×3 (08:10→20:21)
[2020-02-13] MEDS: FERROUS SULFATE 325 MG TABEC PO SCH (08:10)
--- NOTE | 2020-02-13 11:42 | NUR ---
Court Hearing: Patient's court hearing was today and was upheld for GD.
[2020-02-13 15:33] VITALS: BP 94/52
[2020-02-13 20:00] VITALS: BP 106/74
[2020-02-13] MEDS: DIVALPROEX 500 MG TABLET.DR PO SCH (20:22)
--- NOTE | 2020-02-13 22:25 | NUR ---
PATIENT RECEIVED IN BED AWAKE. THE PATIENT IS ALERT/ORIENTED X 2. PATIENT IS LABILE, EASILY IRRITABLE, EASILY AGITATED. "I STILL HEAR THE VOICES." WHEN ASKED WHAT THE VOICES ARE SAYING. "NONE OF YOUR BUSINESS." NO AGGRESSIVE OR COMBATIVE BEHAVIOR NOTED, HOWEVER, IS UNPREDICTABLE. SAFE ENVIRONMENT PROVIDED, FREQUENT ROUNDING, AND CLUTTER FREE ENVIRONMENT. BED IN LOWEST POSITION, BED LOCKED, AND BED ALARM ON WHILE IN BED. THE PATIENT WAS COMPLAINT WITH MEDICATION.
[2020-02-14 07:30] VITALS: BP 124/58
[2020-02-14] MEDS: HALOPERIDOL 5 MG TABLET PO SCH ×3 (08:00→20:57)
[2020-02-14] MEDS: DIVALPROEX 250 MG TABLET.DR PO SCH ×2 (08:00→14:43)
[2020-02-14] MEDS: FERROUS SULFATE 325 MG TABEC PO SCH (08:00)
--- NOTE | 2020-02-14 14:59 | NUR ---
SW Family Contact: This advertising copy writer contacted patient's DPOA sister Madeleine ([phone]) and stated patient will be discharged 02/15 to [facility]. She is aware and agreeable.
--- NOTE | 2020-02-14 15:01 | NUR ---
EARLY WEDNESDAY DISCHARGE ENTRY: Patient will be discharged to [facility] located at [address] [place] [id number]; ([phone]) via ambulance at 1PM. SW spoke with Polly ([phone]), dental hygienist mobile coordinator at the facility, who confirmed patient is welcome today. Patients ZAIN Salvador ([phone]) is aware and agreeable with discharge. Patient is unable to provide care for herself at this time but is willing to accept care provided for him at the facility. Upon discharge, pt appears to be in a dysphoric mood with a congruent affect. Pt denies both suicidal and homicidal ideation as well as auditory and visual hallucinations. Pt appears to be well groomed and appropriately dressed. Pt appears to be ambulatory with a steady gait. Patient will follow up with (psychiatrist) Dr. Juarez located at [address] [facility] [address], [place] [address]; and (planning consultant) Dr. Samano located at [address] [facility] [address], [place] [address]; . Pt signed the Choice of Vendor form and the multidisciplinary exit care form was done, printed, signed, and given to the patient.
[2020-02-14 17:18] VITALS: BP 134/82
[2020-02-14 19:45] VITALS: BP 141/77
[2020-02-14] MEDS: DIVALPROEX 500 MG TABLET.DR PO SCH (20:57)
[2020-02-14] MEDS: ACETAMINOPHEN 325 MG TABLET PO PRN (20:57)
[2020-02-15 04:31] LABS: *BILIRUBIN,URIN NEGATIVE (NEGATIVE); *BLOOD, URINE NEGATIVE (NEGATIVE); *CLARITY,URINE CLEAR (CLEAR); *COLOR,URINE YELLOW (YELLOW); *KETONES,URINE NEGATIVE (NEGATIVE); *UROBILINOGEN,URINE 0.2 E.U./dl (NORMAL); LEUKOCYTE ESTERASE ,URINE NEGATIVE (NEGATIVE); NITRITE, URINE NEGATIVE (NEGATIVE); PH,URINE 6.5 (5.0-8.0); UGLUCOSE NEGATIVE (NEGATIVE)
[2020-02-15 07:30] VITALS: BP 118/79
[2020-02-15] MEDS: HALOPERIDOL 5 MG TABLET PO SCH ×3 (08:51→20:03)
[2020-02-15] MEDS: FERROUS SULFATE 325 MG TABEC PO SCH (08:51)
[2020-02-15] MEDS: DIVALPROEX 250 MG TABLET.DR PO SCH ×2 (08:51→12:51)
--- NOTE | 2020-02-15 13:02 | NUR ---
HELD PT'S [address] ABIODUN FERREIRA.
--- NOTE | 2020-02-15 14:03 | NUR ---
PT CALM AND COOPERATIVE AT THIS TIME. COMPLIANT WITH MEDICATIONS AND CARE. NO AGGRESSIVE OR COMBATIVE BEHAVIOR NOTED. DENIES PAIN OR DISCOMFORT AT THIS TIME. SWABBED PT FOR COVID IN PREPARATION FOR DISCHARGE TOMORROW. IN NO ACUTE DISTRESS.
[2020-02-15 16:00] VITALS: BP 114/68
[2020-02-15 20:00] VITALS: BP 117/69
[2020-02-15] MEDS: ACETAMINOPHEN 325 MG TABLET PO PRN (20:03)
[2020-02-15] MEDS: DIVALPROEX 500 MG TABLET.DR PO SCH (20:03)
--- NOTE | 2020-02-15 20:15 | NUR ---
Received pt resting in bed. No acute distress noted. Noted pt to be running fever 100.0F. Cooling measures provided. Tylenol and other due meds given as ordered. Denies SI. Safety measures maintained. Will continue to monitor.
--- NOTE | 2020-02-15 20:45 | NUR ---
Critical lab received COVID POSITIVE. Notified Larry DOAN, order to transfer and continue hold.
--- NOTE | 2020-02-15 22:04 | NUR ---
Report given. Pt will go to rm 316.
[2020-02-15] MEDS ORDERED: LORA-259 PO (22:50)
[2020-02-15] MEDS ORDERED: MAG355OR18 PO (22:50)
[2020-02-15] MEDS ORDERED: DIVA500T2 PO ×2 (22:50)
[2020-02-15] MEDS ORDERED: TEMA15CA5 PO (22:50)
[2020-02-15] MEDS ORDERED: HALO1TAB5 PO (22:50)
[2020-02-16] MEDS ORDERED: DIVALPROEX 500 MG TABLET.DR PO SCH (08:00)
[2020-02-16] MEDS ORDERED: DIVALPROEX 250 MG TABLET.DR PO SCH (08:00)
--- NOTE | 2020-02-19 09:20 | NUR ---
Transfer Note: Patient was transferred to [facility] due to positive covid test. Patient is from [facility] located at [address] [place] [address]; ([phone]). ANDREW spoke with Polly ([phone]), solution coordinator. Patients DPOA is Madeleine ([phone]). Dr. Juarez wants pt to go to the nursing facility upon discharge. Patient is unsure if he wants to go home to [facility] or not.
== END 2020-02-15 22:00 | disposition short-term general hospital (02) | DRG 885 ==
LOC: ER 15:05 → GPS 22:22 → UNDOADMIN 22:22 → UNDODISIN 02-15 22:00 → MEDSURG3 02-15 22:00 → GPS 02-15 22:00
PROVIDERS: ADMIT Psychiatry & Neurology Psychosomatic Medicine; ATTEND Internal Medicine
DX: F25.9 Schizoaffective disorder, unspecified (principal); U07.1 COVID-19; R45.851 Suicidal ideations; F09 Unspecified mental disorder due to known physiological condition; F60.9 Personality disorder, unspecified; D63.8 Anemia in other chronic diseases classified elsewhere; R62.7 Adult failure to thrive; Z86.73 Personal history of transient ischemic attack (TIA), and cerebral infarction without residual deficits; Z87.891 Personal history of nicotine dependence; G31.84 Mild cognitive impairment of uncertain or unknown etiology
CPT/HCPCS: 36415; 80164; 87086; 93005; A4663; J3490

== ENCOUNTER 2020-02-15 22:30 | Inpatient (IN) | payer MEDICARE ==
[~2020-02-15] VITALS: Ht 167.6 cm; Wt 50.8 kg
[~2020-02-15 22:30] MED LIST changes: +ACET-2154 PO; +BISA10SU61 RC; +FERR325T30 PO; +MAGN400O6 PO; +NA P133E RC; -cogentin; -depakote
[2020-02-15] MEDS ORDERED: LORA-259 PO (22:50)
[2020-02-15] MEDS ORDERED: HALO1TAB5 PO (22:50)
[2020-02-15] MEDS ORDERED: TEMA15CA5 PO (22:50)
[2020-02-15] MEDS ORDERED: MAG355OR18 PO (22:50)
[2020-02-15] MEDS ORDERED: DIVA500T2 PO ×2 (22:50)
[2020-02-15 23:07] VITALS: BP 101/82
[2020-02-16] MEDS ORDERED: CEFTRIAXONE 1 G VIAL IM SCH
[2020-02-16] MEDS ORDERED: ACETAMINOPHEN 650 MG SUPP.RECT RC PRN (00:15)
[2020-02-16] MEDS ORDERED: ONDANSETRON ODT 4 MG TAB.RAPDIS SL PRN (00:15)
[2020-02-16] MEDS ORDERED: MAG HYDROX/AL HYDROX/SIMETH 30 ML LIQUID UDC PO SCH (00:15)
[2020-02-16] MEDS ORDERED: FLEET ENEMA 133 ML BOTTLE RC PRN (00:15)
[2020-02-16] MEDS ORDERED: ACETAMINOPHEN 325 MG TABLET PO PRN (00:15)
[2020-02-16] MEDS ORDERED: ALBUTEROL SULFATE 8 GM HFA.AER.AD IH PRN (00:15)
[2020-02-16 01:19] LABS: BASOPHILS # (AUTO) 0.1 K/uL (0.0-8.0); BASOPHILS % (AUTO) 0.9 % (0.0-2.0); HEMATOCRIT 30.9 % (36.7-47.1); HEMOGLOBIN 9.9 g/dL (12.5-16.3); MEAN CORPUSCULAR HEMOGLOBIN 27.3 uug (23.8-33.4); MEAN CORPUSCULAR HGB CONC 32 g/dL (32.5-36.3); MONOCYTES # (AUTO) 1.3 K/uL (2.0-10.0); NEUTROPHILS # (AUTO) 3.7 K/uL (1.8-8.9); NEUTROPHILS % (AUTO) 61.1 % (38.5-71.5); PLATELET COUNT (AUTO) 234 K/uL (152-348); RED BLOOD CELL COUNT(AUTO) 3.64 MIL/uL (4.06-5.63); WHITE BLOOD COUNT (AUTO) 6.1 K/uL (3.6-10.2)
[2020-02-16 01:23] LABS: BILIRUBIN,TOTAL 0.1 mg/dL (0.2-1.0); CREATININE 1.1 mg/dL (0.6-1.3); POTASSIUM 4.3 mmol/L (3.5-5.1); TOTAL PROTEIN, SERUM 6.9 g/dL (6.4-8.2)
[2020-02-16] MEDS ORDERED: AZITHROMYCIN 500 MG VIAL IV ONE (02:11)
[2020-02-16] MEDS ORDERED: CEFTRIAXONE /D5W 50ML IVPB **ER PYXIS IV ONE (02:11)
[2020-02-16] MEDS: CEFTRIAXONE 1 G in IV DEXTROSE 5% 50 ML IV SCH (02:38)
[2020-02-16] MEDS: AZITHROMYCIN IV 500 MG in IV DEXTROSE 5% 250 ML IV SCH ×2 (02:41→23:20)
[2020-02-16 05:59] LABS: BAND % (MANUAL) 1 % (0-10); LYMPHOCYTES % (MANUAL) 16 % (20-40); MONOCYTES % (MANUAL) 16 % (2-10); NEUTROPHILS % (MANUAL) 67 % (42-75)
[2020-02-16] MEDS ORDERED: LORAZEPAM 1 MG TABLET PO SCH (06:00)
--- NOTE | 2020-02-16 06:00 | NUR ---
Transfer from [facility] as tele patient; IV inserted; SR on tele room air; tolerated antibiotics; safety maintained; plan of care initiated.
[2020-02-16 06:11] VITALS: BP 117/77
[2020-02-16] MEDS ORDERED: HALOPERIDOL 1 MG TABLET PO SCH (09:00)
[2020-02-16] MEDS: DEXAMETHASONE SOD PHOSPHATE 10 MG INJ IV SCH (09:11)
[2020-02-16] MEDS: DIVALPROEX 500 MG TABLET.DR PO SCH ×2 (09:11→21:24)
[2020-02-16] MEDS: BISACODYL 10 MG SUPP.RECT RC SCH (09:11)
[2020-02-16] MEDS: FERROUS SULFATE 325 MG TABEC PO SCH (09:11)
[2020-02-16 12:00] VITALS: BP 103/62
[2020-02-16] MEDS: HALOPERIDOL 5 MG TABLET PO SCH ×2 (13:00→17:15)
[2020-02-16] MEDS ORDERED: HALOPERIDOL 5 MG TABLET PO PRN (13:00)
[2020-02-16 13:13] VITALS: BP 129/59
--- NOTE | 2020-02-16 13:18 | NUR ---
DR DURÁN HERE CALLED AND SPOKE WITH PATIENT VIA ZOOM CALL AND STATED TO DISCONTINUE THE 14 DAY HOLD AND NOTED PRODUCT MARKETING SPECIALIST IS AWARE.
[2020-02-16] MEDS: ENOXAPARIN SODIUM 40 MG/0.4 ML DISP.SYRIN SQ SCH (16:14)
--- NOTE | 2020-02-16 18:00 | NUR ---
PATIENT IS RESTING COMPLIANT WITH MEDICATIONS COOPERATIVE AND SEEMS TO UNDERSTAND THAT HE HAS TO BE HERE FOR HIS COVID TREATMENT ALL NEEDS ANTICIPATED AND SATISFIED WILL CONTINUE TO OBSERVE.
[2020-02-16 20:16] VITALS: BP 125/88
[2020-02-16] MEDS: MAGNESIUM HYDROXIDE 30 ML LIQUID UDC PO SCH (21:00)
[2020-02-17 00:58] VITALS: BP 121/68
[2020-02-17] MEDS: CEFTRIAXONE 1 G in IV DEXTROSE 5% 50 ML IV SCH (01:29)
[2020-02-17] MEDS: LORAZEPAM 1 MG TABLET PO SCH (04:30)
--- NOTE | 2020-02-17 04:30 | NUR ---
pt agitated at this time; hears voices and found talking to himself; pt redirected; pt took ativan po
[2020-02-17 06:59] VITALS: BP 122/66
[2020-02-17 08:00] VITALS: BP 110/69
--- NOTE | 2020-02-17 08:00 | NUR ---
Awake, alert, oriented x 4 but, easily angry, did not like breakfast, threw tray on the floor. Redirected firmly, follows command.
[2020-02-17] MEDS: FERROUS SULFATE 325 MG TABEC PO SCH (09:57)
[2020-02-17] MEDS: DIVALPROEX 500 MG TABLET.DR PO SCH ×2 (09:57→21:05)
[2020-02-17] MEDS: HALOPERIDOL 5 MG TABLET PO SCH ×3 (09:57→18:36)
[2020-02-17] MEDS: DEXAMETHASONE SOD PHOSPHATE 10 MG INJ IV SCH (09:57)
[2020-02-17] MEDS: BISACODYL 10 MG SUPP.RECT RC SCH (09:58)
--- NOTE | 2020-02-17 11:00 | NUR ---
Refused lab draw, explained then compliant with lab
[2020-02-17 11:17] LABS: BASOPHILS # (AUTO) 0.1 K/uL (0.0-8.0); BASOPHILS % (AUTO) 0.9 % (0.0-2.0); EOSINOPHILS % (AUTO) 0.1 % (0.0-7.0); HEMATOCRIT 34.2 % (36.7-47.1); LYMPHOCYTES # (AUTO) 0.8 K/uL (20.0-40.0); LYMPHOCYTES % (AUTO) 12.8 % (20.5-51.5); MEAN CORPUSCULAR HEMOGLOBIN 27.1 uug (23.8-33.4); MEAN CORPUSCULAR HGB CONC 32 g/dL (32.5-36.3); MEAN CORPUSCULAR VOLUME 84.7 fL (73.0-96.2); MONOCYTES # (AUTO) 0.9 K/uL (2.0-10.0); MONOCYTES % (AUTO) 15.5 % (0.0-11.0); NEUTROPHILS # (AUTO) 4.3 K/uL (1.8-8.9); NEUTROPHILS % (AUTO) 70.7 % (38.5-71.5); PLATELET COUNT (AUTO) 221 K/uL (152-348); RED BLOOD CELL COUNT(AUTO) 4.04 MIL/uL (4.06-5.63)
[2020-02-17 11:26] LABS: BILIRUBIN,TOTAL 0.1 mg/dL (0.2-1.0); POTASSIUM 4.1 mmol/L (3.5-5.1); TOTAL PROTEIN, SERUM 7.2 g/dL (6.4-8.2)
[2020-02-17 12:00] VITALS: BP 87/50
[2020-02-17 16:00] VITALS: BP 104/73
[2020-02-17] MEDS: ENOXAPARIN SODIUM 40 MG/0.4 ML DISP.SYRIN SQ SCH (18:36)
--- NOTE | 2020-02-17 19:25 | NUR ---
Yelling and demanding at timed. redirected. Endorsed for further care
[2020-02-17 20:07] LABS: BAND % (MANUAL) 1 % (0-10); LYMPHOCYTES % (MANUAL) 15 % (20-40); MONOCYTES % (MANUAL) 6 % (2-10); NEUTROPHILS % (MANUAL) 78 % (42-75)
[2020-02-17 20:44] VITALS: BP 101/64
[2020-02-17] MEDS: MAGNESIUM HYDROXIDE 30 ML LIQUID UDC PO SCH (21:05)
[2020-02-17] MEDS: AZITHROMYCIN IV 500 MG in IV DEXTROSE 5% 250 ML IV SCH (23:13)
[2020-02-18 01:23] VITALS: BP 103/65
--- NOTE | 2020-02-18 01:25 | NUR ---
Patient in bed. AALOx4.Denies pain . NO SOB.On RA.Iv on left forearm 20 g patent and intact.Administered Iv ATB as ordered.No a/r noted.Patient noted yelling at timed but able to follow commands.Continue on isolation for covid.Will continue to monitor.
[2020-02-18] MEDS: CEFTRIAXONE 1 G in IV DEXTROSE 5% 50 ML IV SCH (01:42)
[2020-02-18 05:50] VITALS: BP 105/64
--- NOTE | 2020-02-18 07:45 | NUR ---
PATIENT AOX4, AWAKE. DENIES CHEST PAIN OR SOB AT THIS TIME. SAFETY AND FALL PRECAUTIONS IN PLACE. ALL NEEDS MET AT THIS TIME. WILL CONTINUE TO MONITOR.
[2020-02-18] MEDS: DEXAMETHASONE SOD PHOSPHATE 10 MG INJ IV SCH (08:59)
[2020-02-18] MEDS: FERROUS SULFATE 325 MG TABEC PO SCH (09:00)
[2020-02-18] MEDS: BISACODYL 10 MG SUPP.RECT RC SCH (09:00)
[2020-02-18] MEDS: DIVALPROEX 500 MG TABLET.DR PO SCH ×2 (09:00→20:21)
[2020-02-18] MEDS: HALOPERIDOL 5 MG TABLET PO SCH ×3 (09:01→17:00)
[2020-02-18] MEDS: ASCORBIC ACID 500 MG TABLET PO SCH (11:00)
[2020-02-18] MEDS: CHOLECALCIFEROL 1,000 UNIT TABLET PO SCH (11:00)
[2020-02-18 12:00] VITALS: BP 106/66
[2020-02-18] MEDS: ENOXAPARIN SODIUM 40 MG/0.4 ML DISP.SYRIN SQ SCH (15:00)
[2020-02-18 17:01] VITALS: BP 110/82
[2020-02-18] MEDS ORDERED: AZITHROMYCIN 250 MG TABLET PO SCH (20:00)
[2020-02-18] MEDS: MAGNESIUM HYDROXIDE 30 ML LIQUID UDC PO SCH (20:21)
[2020-02-18 20:47] VITALS: BP 134/90
--- NOTE | 2020-02-18 21:59 | NUR ---
Patient in bed. awake and able to make needs known. On Ra.Denies SOb.No acute distress noted. Iv on left FA patent and intact.All due meds given. proper PPe strictly observed for covid.Call light with in reach .will continue to monitor.
[2020-02-19] MEDS: CEFTRIAXONE 1 G in IV DEXTROSE 5% 50 ML IV SCH (00:34)
[2020-02-19 00:46] VITALS: BP 118/66
[2020-02-19] MEDS: LORAZEPAM 1 MG TABLET PO SCH (04:39)
[2020-02-19 04:40] VITALS: BP 147/87
--- NOTE | 2020-02-19 05:56 | NUR ---
Patient noted yelling ,screaming and used profanely language .Redirected patient. Ativan given. Call light with in reach.Continue safety measures.will endorse to oncoming shift.
--- NOTE | 2020-02-19 08:01 | NUR ---
Transfer Note: Patient was transferred to [facility] due to positive covid test. Patient is from [facility] located at [address] [place] [address]; ([phone]). ANDREW spoke with Polly ([phone]), transaction coordinator. Patients DPOA is Madeleine ([phone]). Dr. Juarez wants pt to go to the nursing facility upon discharge. Patient is unsure if he wants to go home to [facility] or not.
[2020-02-19 08:33] LABS: CREATININE 0.9 mg/dL (0.6-1.3); MAGNESIUM 2.2 mg/dL (1.8-2.4); PHOSPHOROUS 2.9 mg/dL (2.5-4.9); POTASSIUM 4.2 mmol/L (3.5-5.1); TOTAL PROTEIN, SERUM 6.9 g/dL (6.4-8.2)
--- NOTE | 2020-02-19 09:00 | NUR ---
ALERT COOPERATIVE BUT GETS VERY DEMANDING AT TIME HE IS COMPLIANT WITH MEDICATIONS AND CARE REMAIN ON COVID ISOLATION AND PRECAUTION AT THIS TIME NO SOB NOT IN DISTRESS AT THIS TIME.
[2020-02-19] MEDS: DEXAMETHASONE SOD PHOSPHATE 10 MG INJ IV SCH (09:50)
[2020-02-19] MEDS: BISACODYL 10 MG SUPP.RECT RC SCH (09:51)
[2020-02-19] MEDS: FERROUS SULFATE 325 MG TABEC PO SCH (09:51)
[2020-02-19] MEDS: ASCORBIC ACID 500 MG TABLET PO SCH (09:51)
[2020-02-19] MEDS: CHOLECALCIFEROL 1,000 UNIT TABLET PO SCH (09:51)
[2020-02-19] MEDS: HALOPERIDOL 5 MG TABLET PO SCH ×3 (09:51→16:00)
[2020-02-19] MEDS: DIVALPROEX 500 MG TABLET.DR PO SCH ×3 (09:51→21:02)
[2020-02-19 11:18] LABS: BILIRUBIN,TOTAL 0.1 mg/dL (0.2-1.0)
[2020-02-19 15:31] VITALS: BP 136/84
[2020-02-19] MEDS: ENOXAPARIN SODIUM 40 MG/0.4 ML DISP.SYRIN SQ SCH (16:00)
--- NOTE | 2020-02-19 18:00 | NUR ---
RESTING WITH NO CHANGE IN ASSESSMENTS REQUESTING FOR JUICE TO DRINK ALMOST EVERY HOUR DOES NOT LIKE TO DRINK WATER ENCOURAGED TO DRINK WATER AT TIMES
[2020-02-19] MEDS: MAGNESIUM HYDROXIDE 30 ML LIQUID UDC PO SCH ×2 (21:00→21:02)
[2020-02-19 21:13] VITALS: BP 124/79
--- NOTE | 2020-02-19 22:00 | NUR ---
when asking patient if he would like to take his medication patient lying in bed and eyes shut shaking his head side to side saying no.patient refused medications for tonight despite education.
[2020-02-20 00:03] VITALS: BP 123/76
[2020-02-20] MEDS: CEFTRIAXONE 1 G in IV DEXTROSE 5% 50 ML IV SCH (00:59)
--- NOTE | 2020-02-20 01:41 | NUR ---
walked into patient room to hook IV on for administration of abx. patient refused medication despite education.
[2020-02-20] MEDS: LORAZEPAM 1 MG TABLET PO SCH (04:23)
[2020-02-20 06:44] VITALS: BP 102/55
[2020-02-20] MEDS: HALOPERIDOL 5 MG TABLET PO SCH ×3 (08:31→16:26)
[2020-02-20] MEDS: CHOLECALCIFEROL 1,000 UNIT TABLET PO SCH (08:31)
[2020-02-20] MEDS: FERROUS SULFATE 325 MG TABEC PO SCH (08:31)
[2020-02-20] MEDS: ASCORBIC ACID 500 MG TABLET PO SCH (08:31)
[2020-02-20] MEDS: DIVALPROEX 500 MG TABLET.DR PO SCH (08:31)
[2020-02-20] MEDS: DEXAMETHASONE SOD PHOSPHATE 10 MG INJ IV SCH (08:31)
[2020-02-20] MEDS: BISACODYL 10 MG SUPP.RECT RC SCH (08:31)
[2020-02-20 09:10] LABS: BASOPHILS % (AUTO) 0.3 % (0.0-2.0); EOSINOPHILS % (AUTO) 0.1 % (0.0-7.0); HEMATOCRIT 31.9 % (36.7-47.1); HEMOGLOBIN 10.5 g/dL (12.5-16.3); LYMPHOCYTES # (AUTO) 0.9 K/uL (20.0-40.0); LYMPHOCYTES % (AUTO) 19.1 % (20.5-51.5); MEAN CORPUSCULAR HEMOGLOBIN 27.7 uug (23.8-33.4); MEAN CORPUSCULAR HGB CONC 33 g/dL (32.5-36.3); MONOCYTES # (AUTO) 0.9 K/uL (2.0-10.0); MONOCYTES % (AUTO) 18.9 % (0.0-11.0); NEUTROPHILS # (AUTO) 2.9 K/uL (1.8-8.9); NEUTROPHILS % (AUTO) 61.6 % (38.5-71.5); PLATELET COUNT (AUTO) 174 K/uL (152-348); WHITE BLOOD COUNT (AUTO) 4.7 K/uL (3.6-10.2)
[2020-02-20 09:22] LABS: CREATININE 0.9 mg/dL (0.6-1.3); POTASSIUM 4.1 mmol/L (3.5-5.1)
--- NOTE | 2020-02-20 11:23 | NUR ---
SW Family Contact: This SW spoke with patient's DPOA Madeleine ([phone]) stated she is unable to take pt back home due to covid positive. She stated she does not have room for the pt to quarantine. She requested for this SW to find pt a nursing facility.
--- NOTE | 2020-02-20 11:32 | NUR ---
SNF Referral: This SW contacted [facility] ([phone]) and admin Rakan stated they do not have any beds available. Contacted [facility] ([phone]) and admin stated they do not have any beds available. Contacted [facility] ([phone]) and spoke with Eugenia ([phone]) who stated they have one male bed available (F: [phone]). This SW faxed H & P notes, laboratory list, and medication list.
[2020-02-20 11:45] VITALS: BP 114/81
--- NOTE | 2020-02-20 11:59 | NUR ---
SNF Referral: This SW faxed to [facility] ([phone]) who stated will send referral to [facility] ([phone]) who stated will review clinicals.
--- NOTE | 2020-02-20 13:06 | NUR ---
SNF Referral: This SW spoke with Suzie Mcfarland from [facility] ([phone]) and faxed referrals for review.
[2020-02-20] MEDS: ENOXAPARIN SODIUM 40 MG/0.4 ML DISP.SYRIN SQ SCH (13:58)
--- NOTE | 2020-02-20 14:23 | NUR ---
SNF Contact: This SW faxed to [facility] ([phone]) who stated [facility] ([phone]) unable to accept pt at the moment they are no longer accepting covid patients. [facility] ([phone]) spoke with [facility] who stated they cannot accept pt.
--- NOTE | 2020-02-20 14:56 | NUR ---
SNF Referral: This [facility] ([phone]) ( ) and they stated they are accepting covid patients and psych patients. This SW sent patient's H & P psychiatric notes, progress notes, and medication list. Pastora will follow up with this typewriter tester.
--- NOTE | 2020-02-20 15:05 | NUR ---
SNF Contact: This SW spoke with Suzie Mcfarland from [facility] ([phone]) who stated they are unable to accept pt at this time due to behavior issues.
--- NOTE | 2020-02-20 15:15 | NUR ---
SNF Referral: This SW sent referral packet to [facility] ([phone]). This SW sent H & P notes, progress notes, and medication list. Polly will follow-up with this health science writer if pt is accepted to a COVID positive facility.
--- NOTE | 2020-02-20 15:34 | NUR ---
SNF Contactl: This SW received a phone call from Polly vazquez ([phone]) who stated patient is accepted at [facility] ([phone]) who stated patient is accepted. Room 20c.
--- NOTE | 2020-02-20 15:40 | NUR ---
ORDER TO DISCHARGE PATIENT TO THE SNF NOTED FROM DR CORADO AWAITING FOR HIM TO COMPLETE THE DISCHARGE PROCESS.
--- NOTE | 2020-02-20 15:49 | NUR ---
SW Family Contact: This SW spoke with patient's OSWALDBILLY Salvador ([phone]) and stated patient is accepted at [facility] ([phone]) and will be transferred today. She was agreeable with this transfer.
[2020-02-20 16:00] VITALS: BP 138/89
[2020-02-20] MEDS ORDERED: CHOL10002 PO (16:13)
[2020-02-20] MEDS ORDERED: ALBU8HFA4 IH (16:13)
[2020-02-20] MEDS ORDERED: ASCO500T21 PO (16:13)
[2020-02-20] MEDS ORDERED: HALO5TAB12 PO (16:13)
[2020-02-20] MEDS ORDERED: DEXA4TAB68 PO (16:13)
[2020-02-20 16:19] LABS: LYMPHOCYTES % (MANUAL) 20 % (20-40); MONOCYTES % (MANUAL) 19 % (2-10); NEUTROPHILS % (MANUAL) 61 % (42-75)
--- NOTE | 2020-02-20 18:00 | NUR ---
PER THE COMPUTER SYSTEMS SECURITY ADMINISTRATOR TELEPHONE ADVICE NURSE PATIENT WILL BE DISCHARGED TODAY TO [facility] AND WILL BE PICKED UP BY THE AMBULANCE AT ABOUT [phone] PATIENT IS ANXIOUS AND READY TO LEAVE HEPLOCK AND TELEMETRY REMOVED AND PATIENT IS BEING PREPPED FOR DISCHARGE AT THIS TIME.
--- NOTE | 2020-02-20 18:17 | NUR ---
CALLED THE [facility] SPOKE WITH GINO AND REPORT GIVEN TO HER FOR CONTINUING CARE PATIENT TO STAY ON ISOLATION FOR 14 MORE DAYS AND THEN TO RECHECK FOR COVID AND SHE EXPRESSED UNDERSTANDING PATIENT IS IN SATISFACTORY CONDITION AT THIS TIME.
--- NOTE | 2020-02-20 18:53 | NUR ---
PATIENT DISCHARGED PICKED UP BY [facility] IN SATISFACTORY CONDITION WITH ALL HIS PERSONAL BELONGINGS.
== END 2020-02-20 18:55 | DRG 178 ==
LOC: TELE3 22:30
PROVIDERS: ADMIT Nurse Practitioner Acute Care; ATTEND Nurse Practitioner Acute Care
DX: U07.1 COVID-19 (principal); E87.1 Hypo-osmolality and hyponatremia; Z68.1 Body mass index [BMI] 19.9 or less, adult; E44.1 Mild protein-calorie malnutrition; F25.0 Schizoaffective disorder, bipolar type; R62.7 Adult failure to thrive; E88.09 Other disorders of plasma-protein metabolism, not elsewhere classified; R79.89 Other specified abnormal findings of blood chemistry; D64.9 Anemia, unspecified; Z87.891 Personal history of nicotine dependence
CPT/HCPCS: 36415; 70030-TC; 71045; 83605; 83615; 83735; 84100; 85025; 86140; 93005; A4663; G0378; J0456; J0696; J1100; J1650; J3535; J7040; J7060; U0003